=== PATIENT | female | born 1950 | race Caucasian/White ===

== ENCOUNTER 2018-02-15 21:09 | Inpatient (IN) | payer MEDICARE, OTHER ==
[~2018-02-15] VITALS: Ht 152.4 cm; Wt 70.3 kg
[2018-02-15] MEDS ORDERED: FLUC150T PO (21:31)
[2018-02-15] MEDS ORDERED: CEPH500C2 PO (21:31)
--- NOTE | 2018-02-15 21:38 | NUR ---
Female yard pipe grader accompanied female patient for Dr. Damon.
--- NOTE | 2018-02-15 21:47 | NUR ---
Per nursing erection shop supervisor, pt will stay in ED for observation and move to MHU at a later time.
--- NOTE | 2018-02-15 22:14 | NUR ---
Pt sitting up in bed, in no acute distress. Safe environment implemented.
--- NOTE | 2018-02-15 23:21 | NUR ---
Pt is resting comfortably in bed. Pt is medically cleared and ready to be admitted to MHU. MHU nurse and nursing stave cutting supervisor aware, but still pending transfer to MHU unit.
--- NOTE | 2018-02-16 00:26 | NUR ---
Per MHU nurse, she will receive report at 0100.
--- NOTE | 2018-02-16 01:14 | NUR ---
Report given to SUZI Murphy
--- NOTE | 2018-02-16 01:32 | NUR ---
Pt. admitted to MHU, under care of Dr. Leahy/Aubree. Belongs List completed.
[2018-02-16] MEDS ORDERED: MAG HYDROX/AL HYDROX/SIMETH 30 ML LIQUID UDC PO PRN (02:00)
[2018-02-16] MEDS ORDERED: TEMAZEPAM 7.5 MG CAPSULE PO PRN (02:00)
[2018-02-16] MEDS ORDERED: MAGNESIUM HYDROXIDE 30 ML LIQUID UDC PO PRN (02:00)
[2018-02-16] MEDS ORDERED: LORAZEPAM 0.5 MG TABLET PO PRN (02:00)
--- NOTE | 2018-02-16 02:30 | NUR ---
AT APPROX 0135 ADMITTED 67 YEARS OLD FEMALE TO [facility] MHU ON A 5150 FOR GD. PATIENT IS A RESIDENT OF [facility] IS A LOCKED FACILITY. SHE WAS TRANSFER TO [facility] D/T BURNING ON VULVA, SHE LATER BECAME DELUSIONAL AND REFUSED TO GO BACK TO [place]. A RESULTS; SHE WAS EVALUATED AND [facility] DEPT OF PSYCHIATRY AND PLACED ON HOLD. ONCE MEDICALLY CLEARED SHE WAS TRANSFERRED TO [facility] ER. HOLD WILL END ON 02/18/18 AT 1300. FACE TO FACE ASSESSMENT DONE. AT TIME OF ADMISSION, PATIENT NOTED A/O X3, ABLE TO AMBULATED WITH STEADY GAIT AND ABLE TO MAKE HER NEEDS KNOWN. SHE WAS NOTED CALM AND COOPERATIVE WITH ADMISSION PROCESS. SKIN WARM AND INTACT. PATIENT IS UNDER THE CARE OF DR. TREVIZO. WILL CONTINUE TO MONITOR.
[2018-02-16] MEDS ORDERED: MICO45CR15 VG (02:36)
[2018-02-16 02:49] VITALS: BP 129/59
[2018-02-16 07:30] VITALS: BP 142/47
--- NOTE | 2018-02-16 08:50 | NUR ---
GPS: NURSING:NOTIFIED JENI Heath NP TO RECONCILE MEDICATIONS AND REPORT PATIENT LAB RESULTS, CONFIRM THAT HE WILL FOLLOW UP.
--- NOTE | 2018-02-16 09:47 | NUR ---
GPS: NURSING: CALLED DAUGHTER DHIRAJ , LETTING HER KNOW THAT HER MOTHER IN [facility].
[2018-02-16] MEDS ORDERED: risperiDONE 1 MG/ML UDC GT SCH (13:30)
--- NOTE | 2018-02-16 14:10 | NUR ---
GPS: NURSING: CALLED LOSS CONTROL REPRESENTATIVE FOR FOLLOW UP WITH PATIENTS MEDICATIONS AND LABS AND LOSS CONTROL REPRESENTATIVE CONFIRM
[2018-02-16] MEDS: HALOPERIDOL 5 MG TABLET PO SCH ×2 (14:21→16:55)
[2018-02-16] MEDS ORDERED: FLUCONAZOLE 100 MG TABLET PO ONE (14:30)
[2018-02-16] MEDS ORDERED: DEXTROSE 50% 50 ML DISP.SYRIN IV PRN (14:45)
[2018-02-16 15:59] VITALS: BP 120/44
[2018-02-16] MEDS: BLOOD SUGAR DIAGNOSTIC 1 EACH STRIP VI SCH ×2 (16:42→20:50)
[2018-02-16] MEDS: INSULIN REGULAR, HUMAN 300 UNIT/3 ML VIAL SQ PRN ×2 (16:46→20:55)
[2018-02-16] MEDS: CEPHALEXIN MONOHYDRATE 500 MG CAPSULE PO SCH ×2 (16:54→20:36)
[2018-02-16 19:50] VITALS: BP 113/31
[2018-02-16] MEDS: NYSTATIN POWDER 15 GM BOTTLE TOP SCH (20:37)
[2018-02-16] MEDS ORDERED: INSULIN GLARGINE,HUM 300 UNITS/3 ML CARTRIDGE SQ SCH (21:00)
[2018-02-17] MEDS: BLOOD SUGAR DIAGNOSTIC 1 EACH STRIP VI SCH ×4 (06:37→20:04)
[2018-02-17 07:30] VITALS: BP 137/49
[2018-02-17] MEDS: CEPHALEXIN MONOHYDRATE 500 MG CAPSULE PO SCH ×4 (08:33→20:03)
[2018-02-17] MEDS: NYSTATIN POWDER 15 GM BOTTLE TOP SCH ×2 (08:34→20:08)
[2018-02-17] MEDS: HALOPERIDOL 5 MG TABLET PO SCH ×2 (08:40→17:03)
[2018-02-17] MEDS: INSULIN REGULAR, HUMAN 300 UNIT/3 ML VIAL SQ PRN ×2 (12:09→16:47)
--- NOTE | 2018-02-17 15:06 | NUR ---
received MRSA isolation for nares. notified.
[2018-02-17] MEDS ORDERED: DEXTROSE 50% 50 ML DISP.SYRIN IV PRN (15:15)
[2018-02-17 16:23] VITALS: BP 125/49
[2018-02-17] MEDS: MUPIROCIN 2% OINT 22 GM TUBE NS SCH (20:03)
[2018-02-17] MEDS: ATORVASTATIN 10 MG TABLET PO SCH (20:03)
[2018-02-17] MEDS: INSULIN GLARGINE,HUM 300 UNITS/3 ML CARTRIDGE SQ SCH (20:07)
[2018-02-17 20:08] VITALS: BP 101/49
[2018-02-17] MEDS: INSULIN REGULAR, HUMAN 300 UNITS/3 ML VIAL SQ PRN (20:08)
--- NOTE | 2018-02-18 06:41 | NUR ---
Received Pt asleep in bed, arouses easily. A+Ox3. Cooperative with staff direction, compliant with medications. Denies SI/SI, denies AH/VH. HS BS 322, 8 units regular insulin and 20 units lantus administered per Dr order, snack given and consumed 100%. AM BS 187. Asymptomatic for s/s of hyperglycemia. Pt guarded and isolative to her room the entire shift. Denies pain, VS stable. In no acute physical distress.
[2018-02-18] MEDS: BLOOD SUGAR DIAGNOSTIC 1 EACH STRIP VI SCH ×4 (07:01→20:27)
[2018-02-18 07:30] VITALS: BP 129/55
[2018-02-18 07:46] LABS: BASOPHILS % (AUTO) 0.6 % (0.0-2.0); EOSINOPHILS # (AUTO) 0.2 K/uL (0.0-0.7); HEMOGLOBIN 15.9 g/dL (10.9-14.3); LYMPHOCYTES # (AUTO) 2.1 K/uL (20.0-40.0); LYMPHOCYTES % (AUTO) 40.1 % (20.5-51.5); MEAN CORPUSCULAR HEMOGLOBIN 31.5 uug (24.7-32.8); MEAN CORPUSCULAR HGB CONC 35 g/dL (32.3-35.6); MEAN CORPUSCULAR VOLUME 91.5 fL (75.5-95.3); MONOCYTES # (AUTO) 0.4 K/uL (2.0-10.0); MONOCYTES % (AUTO) 7.6 % (0.0-11.0); NEUTROPHILS # (AUTO) 2.6 K/uL (1.8-8.9); NEUTROPHILS % (AUTO) 48.7 % (38.5-71.5); PLATELET COUNT (AUTO) 261 K/uL (179-408); RED BLOOD CELL COUNT(AUTO) 5.03 MIL/uL (3.63-4.92); WHITE BLOOD COUNT (AUTO) 5.3 K/uL (3.8-11.8)
[2018-02-18 07:50] LABS: CREATININE 0.5 mg/dL (0.6-1.3); MAGNESIUM 2.1 mg/dL (1.8-2.4); PHOSPHOROUS 3.8 mg/dL (2.5-4.9); POTASSIUM 4.5 mmol/L (3.5-5.1)
[2018-02-18] MEDS: MUPIROCIN 2% OINT 22 GM TUBE NS SCH ×2 (09:00→20:31)
--- NOTE | 2018-02-18 09:35 | NUR ---
PT SLEEPING IN BED, NO DISTRESS, PT TOOK ALL AM MEDS. WILL CONTINUE TO MONITOR.
[2018-02-18] MEDS: HALOPERIDOL 5 MG TABLET PO SCH ×2 (09:49→16:34)
[2018-02-18] MEDS: CEPHALEXIN MONOHYDRATE 500 MG CAPSULE PO SCH ×4 (09:49→20:29)
[2018-02-18] MEDS: NYSTATIN POWDER 15 GM BOTTLE TOP SCH ×2 (12:10→20:30)
[2018-02-18] MEDS: INSULIN REGULAR, HUMAN 300 UNIT/3 ML VIAL SQ PRN ×2 (12:18→16:42)
--- NOTE | 2018-02-18 14:30 | NUR ---
Initial Discharge Instructions: Patient currently lives at [facility] [[address] [place] [id number]; [phone]]. Per patient, she does not want to return there, and instead will be "extradited by the [facility]." When asked where she will go, the patient stated, "I know where I'm going." Patient refused to elaborate further. Patient is unable to form a plan for self-care at this time and may benefit from locked SNF placement. Spoke with pt's daughter, Soha ([phone]) who expressed concern of the ability for pt's B&C to "meet her needs," and is asking for different placement in the [facility]. SW will collaborate with pt, family, and MD regarding most appropriate discharge plans for this patient. SW will form a safe and proper discharge.
[2018-02-18 16:00] VITALS: BP 127/74
--- NOTE | 2018-02-18 17:47 | NUR ---
PT TOOK PM MEDS, STAYS IN ROOM GUARDED AND ISOLATIVE, WILL ENSORE TO NEXT SHIFT NURSE.
[2018-02-18] MEDS: ATORVASTATIN 10 MG TABLET PO SCH (20:29)
[2018-02-18] MEDS: INSULIN REGULAR, HUMAN 300 UNITS/3 ML VIAL SQ PRN (20:39)
[2018-02-18] MEDS: INSULIN GLARGINE,HUM 300 UNITS/3 ML CARTRIDGE SQ SCH (20:40)
[2018-02-18 21:32] VITALS: BP 126/66
[2018-02-19] MEDS: BLOOD SUGAR DIAGNOSTIC 1 EACH STRIP VI SCH ×4 (06:43→20:35)
[2018-02-19 07:30] VITALS: BP 117/55
[2018-02-19] MEDS: HALOPERIDOL 5 MG TABLET PO SCH ×2 (08:20→17:15)
[2018-02-19] MEDS: NYSTATIN POWDER 15 GM BOTTLE TOP SCH ×2 (08:20→20:28)
[2018-02-19] MEDS: CEPHALEXIN MONOHYDRATE 500 MG CAPSULE PO SCH ×4 (08:20→20:28)
[2018-02-19] MEDS: MUPIROCIN 2% OINT 22 GM TUBE NS SCH ×2 (08:21→20:28)
[2018-02-19] MEDS: INSULIN REGULAR, HUMAN 300 UNIT/3 ML VIAL SQ PRN ×3 (08:24→17:20)
[2018-02-19 16:00] VITALS: BP 120/70
[2018-02-19] MEDS ORDERED: DEXTROSE 50% 50 ML DISP.SYRIN IV PRN (18:30)
[2018-02-19] MEDS: ATORVASTATIN 10 MG TABLET PO SCH (20:28)
[2018-02-19] MEDS: INSULIN REGULAR, HUMAN 300 UNITS/3 ML VIAL SQ PRN (20:37)
[2018-02-19] MEDS: INSULIN GLARGINE,HUM 300 UNITS/3 ML CARTRIDGE SQ SCH (20:39)
[2018-02-19 21:31] VITALS: BP 116/60
[2018-02-20] MEDS: BLOOD SUGAR DIAGNOSTIC 1 EACH STRIP VI SCH ×4 (06:31→20:48)
[2018-02-20 07:30] VITALS: BP 143/56
[2018-02-20] MEDS: INSULIN REGULAR, HUMAN 300 UNIT/3 ML VIAL SQ PRN ×3 (08:05→17:07)
[2018-02-20] MEDS: CEPHALEXIN MONOHYDRATE 500 MG CAPSULE PO SCH ×4 (08:05→20:29)
[2018-02-20] MEDS: HALOPERIDOL 5 MG TABLET PO SCH ×2 (08:05→17:10)
[2018-02-20] MEDS: NYSTATIN POWDER 15 GM BOTTLE TOP SCH ×2 (08:06→20:29)
[2018-02-20] MEDS: MUPIROCIN 2% OINT 22 GM TUBE NS SCH ×2 (08:10→20:29)
[2018-02-20 16:00] VITALS: BP 100/34
[2018-02-20 20:00] VITALS: BP 117/48
[2018-02-20] MEDS: ATORVASTATIN 10 MG TABLET PO SCH (20:29)
[2018-02-20] MEDS: INSULIN GLARGINE,HUM 300 UNITS/3 ML CARTRIDGE SQ SCH (20:40)
[2018-02-20] MEDS: INSULIN REGULAR, HUMAN 300 UNITS/3 ML VIAL SQ PRN (20:42)
[2018-02-21] MEDS: BLOOD SUGAR DIAGNOSTIC 1 EACH STRIP VI SCH ×4 (06:44→21:04)
[2018-02-21 07:30] VITALS: BP 122/33
[2018-02-21] MEDS: HALOPERIDOL 5 MG TABLET PO SCH ×2 (08:18→17:33)
[2018-02-21] MEDS: MUPIROCIN 2% OINT 22 GM TUBE NS SCH ×2 (08:18→20:48)
[2018-02-21] MEDS: CEPHALEXIN MONOHYDRATE 500 MG CAPSULE PO SCH ×4 (08:18→20:47)
[2018-02-21] MEDS: NYSTATIN POWDER 15 GM BOTTLE TOP SCH ×2 (08:18→20:48)
[2018-02-21] MEDS: INSULIN REGULAR, HUMAN 300 UNIT/3 ML VIAL SQ PRN ×2 (12:03→17:09)
[2018-02-21 16:00] VITALS: BP 100/32
[2018-02-21 20:37] VITALS: BP 116/44
[2018-02-21] MEDS: ATORVASTATIN 10 MG TABLET PO SCH (20:47)
[2018-02-21] MEDS: INSULIN GLARGINE,HUM 300 UNITS/3 ML CARTRIDGE SQ SCH (21:02)
[2018-02-21] MEDS: INSULIN REGULAR, HUMAN 300 UNITS/3 ML VIAL SQ PRN (21:03)
--- NOTE | 2018-02-22 06:15 | NUR ---
PT SLEPT 4.30 HOURS. PT SHOWS NO SIGNS OF DISTRESS. PT COMPLIANT WITH CARE. PRESCRIBED MEDICATION GIVEN AND PT TOLERATED IT WELL.SAFETY AND COMFORT PROVIDED. WILL ENDORSE TO DAYSPAFT NURSE FOR CONTINUITY OF CARE.
[2018-02-22] MEDS: BLOOD SUGAR DIAGNOSTIC 1 EACH STRIP VI SCH ×4 (07:20→20:56)
[2018-02-22 07:30] VITALS: BP 120/42
[2018-02-22] MEDS: NYSTATIN POWDER 15 GM BOTTLE TOP SCH ×2 (08:44→20:35)
[2018-02-22] MEDS: HALOPERIDOL 5 MG TABLET PO SCH ×2 (08:46→16:47)
[2018-02-22] MEDS: CEPHALEXIN MONOHYDRATE 500 MG CAPSULE PO SCH ×4 (08:46→20:34)
[2018-02-22] MEDS: MUPIROCIN 2% OINT 22 GM TUBE NS SCH ×2 (08:46→20:47)
[2018-02-22] MEDS: INSULIN REGULAR, HUMAN 300 UNIT/3 ML VIAL SQ PRN ×3 (08:46→16:46)
[2018-02-22] MEDS: ACETAMINOPHEN 325 MG TABLET PO PRN (11:07)
--- NOTE | 2018-02-22 14:59 | NUR ---
DC Planning: CARLOS placed call to patient's daughter, Soha ([phone]) to discuss discharge planning. Per Soha, she has been in contact with the placement agency, [facility], and reports that she has 2 tours set up to look at tomorrow (02/23/18). Discussed with daughter about the potential need for SNF placement and she was agreeable. Dtr agreed to placement in the [place] if needed, but prefers placement close to [place], [place], which is where she lives. SW provided daughter with [employer] website, and asked that she inform this telegraphic typewriter repairer of facilities she would like. SW will begin searching for SNF placement in that area as well. Plan: CARLOS and daughter will discuss further tomorrow, after daughter's tours with the Assisted Living Facilities.
--- NOTE | 2018-02-22 15:16 | NUR ---
Firearms Report: CARLOS completed and submitted [employer] Firearms Report for 5250 GD certification.
[2018-02-22 15:41] VITALS: BP 112/47
[2018-02-22] MEDS ORDERED: BENZTROPINE MESYLATE 1 MG TABLET PO PRN (16:15)
[2018-02-22 20:24] VITALS: BP 129/81
[2018-02-22] MEDS: ATORVASTATIN 10 MG TABLET PO SCH (20:34)
[2018-02-22] MEDS: INSULIN REGULAR, HUMAN 300 UNITS/3 ML VIAL SQ PRN (20:57)
[2018-02-22] MEDS: INSULIN GLARGINE,HUM 300 UNITS/3 ML CARTRIDGE SQ SCH (20:58)
[2018-02-23] MEDS: BLOOD SUGAR DIAGNOSTIC 1 EACH STRIP VI SCH ×4 (06:32→20:35)
[2018-02-23 07:30] VITALS: BP 118/50
[2018-02-23] MEDS: HALOPERIDOL 5 MG TABLET PO SCH ×2 (08:37→17:08)
[2018-02-23] MEDS: CEPHALEXIN MONOHYDRATE 500 MG CAPSULE PO SCH ×4 (08:37→20:29)
[2018-02-23] MEDS: NYSTATIN POWDER 15 GM BOTTLE TOP SCH ×2 (08:37→20:29)
[2018-02-23] MEDS: MUPIROCIN 2% OINT 22 GM TUBE NS SCH ×2 (08:37→20:29)
[2018-02-23] MEDS: INSULIN REGULAR, HUMAN 300 UNIT/3 ML VIAL SQ PRN ×3 (08:40→17:11)
[2018-02-23 16:00] VITALS: BP 121/56
[2018-02-23 20:00] VITALS: BP 120/51
[2018-02-23] MEDS: ATORVASTATIN 10 MG TABLET PO SCH (20:29)
[2018-02-23] MEDS: INSULIN GLARGINE,HUM 300 UNITS/3 ML CARTRIDGE SQ SCH (20:34)
[2018-02-23] MEDS: INSULIN REGULAR, HUMAN 300 UNITS/3 ML VIAL SQ PRN (20:35)
[2018-02-24] MEDS: ACETAMINOPHEN 325 MG TABLET PO PRN (04:32)
--- NOTE | 2018-02-24 04:38 | NUR ---
GPS: Pt.now awake at this time. Asking for something to eat. Pt.was reminded that her blood sugar will be checked in about 2 hrs.and that she refused her Lantus insulin and reg.insulin per sliding scale last night. Pt.was easily irritable and just walked away.
[2018-02-24] MEDS: BLOOD SUGAR DIAGNOSTIC 1 EACH STRIP VI SCH ×4 (06:34→20:34)
[2018-02-24 07:30] VITALS: BP 118/52
[2018-02-24] MEDS: MUPIROCIN 2% OINT 22 GM TUBE NS SCH ×2 (08:14→20:27)
[2018-02-24] MEDS: HALOPERIDOL 5 MG TABLET PO SCH ×2 (08:14→17:31)
[2018-02-24] MEDS: CEPHALEXIN MONOHYDRATE 500 MG CAPSULE PO SCH ×4 (08:14→20:27)
[2018-02-24] MEDS: NYSTATIN POWDER 15 GM BOTTLE TOP SCH ×2 (08:15→20:27)
[2018-02-24] MEDS: INSULIN REGULAR, HUMAN 300 UNIT/3 ML VIAL SQ PRN ×2 (12:30→17:43)
--- NOTE | 2018-02-24 13:00 | NUR ---
GROUP NOTE: SW offered patient to attend group today; however, patient was asleep. Patient was unable to be awoken. SW will continue to encourage pt to attend group during scheduled time in the future.
[2018-02-24 16:10] VITALS: BP 107/38
[2018-02-24 20:09] VITALS: BP 132/56
[2018-02-24] MEDS: ATORVASTATIN 10 MG TABLET PO SCH (20:26)
[2018-02-24] MEDS: INSULIN GLARGINE,HUM 300 UNITS/3 ML CARTRIDGE SQ SCH (20:34)
[2018-02-24] MEDS: INSULIN REGULAR, HUMAN 300 UNITS/3 ML VIAL SQ PRN (20:34)
[2018-02-25] MEDS: ACETAMINOPHEN 325 MG TABLET PO PRN (02:12)
[2018-02-25] MEDS: BLOOD SUGAR DIAGNOSTIC 1 EACH STRIP VI SCH ×4 (06:47→20:20)
[2018-02-25 07:30] VITALS: BP 124/32
[2018-02-25] MEDS: HALOPERIDOL 5 MG TABLET PO SCH ×2 (08:10→17:07)
[2018-02-25] MEDS: CEPHALEXIN MONOHYDRATE 500 MG CAPSULE PO SCH ×2 (08:10→12:31)
[2018-02-25] MEDS: NYSTATIN POWDER 15 GM BOTTLE TOP SCH ×2 (08:13→20:20)
[2018-02-25] MEDS: INSULIN REGULAR, HUMAN 300 UNIT/3 ML VIAL SQ PRN ×2 (12:15→17:05)
--- NOTE | 2018-02-25 15:39 | NUR ---
DC Planning: Placed call to pt's daughter ([phone]) to discuss discharge planning. Explored options of PENITENTIARY vs SNF, and daughter was more agreeable with SNF placement for the short-term so that she has more time to find an [facility]. Daughter reported that she would like to tour each facility her mother is accepted to before she makes her decision. Inquiries were sent to the following facilities: [facility] (ph. [phone]; fax [phone] Attn: Jaylyn). Patient accepted [facility] (ph. [phone]; fax [phone] Attn: Parish). Patient accepted [facility] (ph. [phone]; fax [phone] Attn: Ayden). Patient accepted [facility] (ph. [phone]; fax [phone] Attn: Carol). Patient denied [facility] (ph. [phone]; fax [phone] Attn: Rosalba). Patient accepted Informed daughter of choices for placement for the patient. Daughter reports she will take a tour of each of the facilities and report back to this junior copywriter of her choice. SW will continue to follow-up.
[2018-02-25 16:10] VITALS: BP 105/37
[2018-02-25] MEDS: ATORVASTATIN 10 MG TABLET PO SCH (20:21)
[2018-02-25] MEDS: INSULIN GLARGINE,HUM 300 UNITS/3 ML CARTRIDGE SQ SCH (20:23)
[2018-02-25] MEDS: INSULIN REGULAR, HUMAN 300 UNITS/3 ML VIAL SQ PRN (20:24)
[2018-02-25 20:58] VITALS: BP 126/44
--- NOTE | 2018-02-26 06:46 | NUR ---
No overnight events, VS stable, denies pain, in no acute physical distress. Compliant with medications, cooperative with staff direction. HS BS 291, 6 units regular insulin administered per SS, 20 units lantus administered per MD order, snack given. AM BG 165. Pt to be discharged to day to [facility] [place].
--- NOTE | 2018-02-26 06:49 | NUR ---
Showered this AM, slept 4.30 hours.
[2018-02-26] MEDS: BLOOD SUGAR DIAGNOSTIC 1 EACH STRIP VI SCH ×2 (06:58→11:53)
[2018-02-26 07:30] VITALS: BP 113/32
[2018-02-26] MEDS: INSULIN REGULAR, HUMAN 300 UNIT/3 ML VIAL SQ PRN ×2 (07:40→11:58)
--- NOTE | 2018-02-26 08:04 | NUR ---
Discharge Note: Patient will be discharged to [facility] [[address] [place] [address]; ] via ambulance at 10am. Please arrange an ambulance for this patient. Spoke to Rosalba at the facility who states they are ready to accept the patient today. Spoke with patients daughter, Soha ([phone]) who is aware and agreeable with discharge plan. Patient is alert and oriented x2-3 and is cooperative. Patient will be in room 23-A, and will follow-up at the facility with Dr. Alfa Soria (Bulk Clerk) and Dr. John Oh (Psychiatrist).
[2018-02-26] MEDS: HALOPERIDOL 5 MG TABLET PO SCH (08:50)
[2018-02-26] MEDS: NYSTATIN POWDER 15 GM BOTTLE TOP SCH (09:00)
--- NOTE | 2018-02-26 12:42 | NUR ---
UPDATE ON DC NOTE: Received call from Rosalba at [facility] ([phone]) who reported a room change for the patient. Patient will now be in room 18-B.
--- NOTE | 2018-02-26 13:25 | NUR ---
PT LEFT [place]IT ON [place] ACCOMPANIED BY EMT. DENIES PAIN OR DISCOMFORT. LEFT WITH ALL NOTED BELONGINGS AND PAPERWORK. V/S STABLE. IN NO ACUTE DISTRESS.
== END 2018-02-26 13:25 | DRG 885 ==
LOC: ER 21:12 → GPS 02-16 01:17
PROVIDERS: ADMIT Psychiatry & Neurology Psychiatry; ATTEND Hospitalist
DX: F20.0 Paranoid schizophrenia (principal); E11.65 Type 2 diabetes mellitus with hyperglycemia; N39.0 Urinary tract infection, site not specified; B37.2 Candidiasis of skin and nail; Z91.14 Patient's other noncompliance with medication regimen; N76.0 Acute vaginitis; E78.5 Hyperlipidemia, unspecified; Z22.322 Carrier or suspected carrier of Methicillin resistant Staphylococcus aureus; Z79.899 Other long term (current) drug therapy; F32.9 Major depressive disorder, single episode, unspecified
CPT/HCPCS: 36415; 71045; 83735; 84100; 85025; 93005; A4663; J1815